=== PATIENT | female | born 1985 ===

== ENCOUNTER 2018-08-15 02:25 | Emergency (ER) | payer OTHER ==
[2018-08-15] MEDS ORDERED: ACETAMINOPHEN 500 MG TAB PO ONE (03:03)
[2018-08-15] MEDS ORDERED: NS 1,000 ML IV ONE ×2 (03:11)
[2018-08-15] MEDS ORDERED: KETOROLAC 15 MG/1 ML SDV IVP ONE ×2 (03:12→04:44)
--- NOTE | 2018-08-15 03:16 | EDPHY ---
H & P Stated Complaint: back pain,dyspnea,fever for 5 days Time Seen by Provider: 08/15/18 02:56 HPI/ROS: This patient reports onset of left flank pain 3 and half days prior to arrival increasing in intensity since that time to its current 10/10 achy and sharp in nature. She took 1 Advil prior to arrival but did have relief. She reports onset over the past several hours of associated fevers and chills as well as diaphoresis. She reports some dyspnea is well but feels this is related to anxiety from her symptoms. Her boyfriend drove her here by private vehicle for evaluation of the symptoms tonight. She notes no other exacerbating factors except that with a deep breath she has an increase in the pain in her left flank in addition. ROS: Constitutional: Fevers and chills HEENT: No URI symptoms. No nasal congestion. No sore throat. No ear pain Pulmonary: No cough. Otherwise as per HPI. Cardiovascular: No leg pain or swelling. No chest pain. No lightheadedness. GI: No abdominal pain. No nausea vomiting. Normal bowel movements. Normal appetite. : She has not noticed dysuria frequency urgency. No hematuria noted. Integumentary: No skin rashes. 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 She denies any midline neck or back pain. Neuro: No headache. No numbness tingling or focal weakness. No confusion. 10 point review of symptoms is performed and otherwise negative with exception of pertinent positives and negatives listed in HPI and ROS Source: Patient Exam Limitations: No limitations - Personal History LMP (Females 10-55): Irregular Current Tetanus Diphtheria and Acellular Pertussis (TDAP): Yes Tetanus Vaccine Date: unsure - Medical/Surgical History Hx Asthma: No Hx Chronic Respiratory Disease: No Hx Diabetes: No Hx Cardiac Disease: No Hx Renal Disease: No Hx Cirrhosis: No Hx Alcoholism: No Hx HIV/AIDS: No Hx Splenectomy or Spleen Trauma: No Other PMH: denies - Family History Significant Family History: No pertinent family hx - Social History Smoking Status: Former smoker Alcohol Use: Rarely Drug Use: None 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 - Physical Exam Exam: Morbidly obese female with vitals notable for fever 37.9, tachycardia to 128, normal blood pressure O2 sat of 93% room air General Appearance: Alert, no distress. Eyes: Pupils equal and round no pallor or injection. ENT, Mouth: Mucous membranes moist. Respiratory: There are no retractions, lungs are clear to auscultation. Cardiovascular: Regular rate and rhythm. Gastrointestinal: Abdomen is soft and nontender, no masses, bowel sounds normal. Back: Patient has no midline tenderness. She has left CVA tenderness. Neurological: GCS 15 with no focal deficits. Skin: Warm and dry, no rashes. Musculoskeletal: Neck is supple nontender. Extremities are symmetrical, full range of motion. Psychiatric: Mildly anxious. Mood and affect are otherwise normal DIFFERENTIAL DIAGNOSIS: After history and physical exam differential diagnosis include pyelonephritis, pneumonia, sepsis, doubt epidural abscess, doubt Reji Yariel Juan syndrome given lack of symptoms, viral syndrome. Constitutional: Initial Vital Signs Temperature (C) 37.9 C 08/15/18 02:33 Heart Rate 128 H 08/15/18 02:33 Respiratory Rate 20 08/15/18 02:33 Blood Pressure 131/78 H 08/15/18 02:33 O2 Sat (%) 93 08/15/18 02:33 O2 Delivery Mode Room Air Allergies/Adverse Reactions: No Known Allergies Allergy (Unverified 08/15/18 02:33) Home Medications: Medication Instructions Recorded Cephalexin [Keflex (*)] 500 mg PO TID #30 cap 08/15/18 Medical Decision Making ED Course/Re-evaluation: IV normal saline bolus, Toradol IV, Rocephin 2 g IV Labs to include CBC, basic metabolic panel, lactate and blood culture, urine culture, will also obtain a chest x-ray workup this patient's fever and flank pain. Patient is noted to have leukocytosis with left shift on CBC, basic metabolic panel reveals mild hyperglycemia in the 170s, otherwise normal and venous lactate is mildly elevated at 2.7. Patient remained hemodynamically stable. After 2 L normal saline bolus patient has venous lactate normalized. At 0355 I evaluated the patient's saline bolus was going very slowly despite repositioning. I ordered a 2nd IV to facilitate saline bolus After Toradol at her fever has resolved. Part way through the saline bolus her pulse has normalized to a rate of 98. I explained to the patient that she has findings consistent with severe sepsis and that we often admit patients for this problem. Patient declines admission preferring to proceed home after her ED treatment. She reports that her pain is resolved after Toradol. She reports that she is aware of her hyperglycemia due to a recent blood glucose that a friend performed for her that works at medical facility but she has not seen a physician yet. - Data Points Laboratory Results: POC urine dip is positive for leukocytes, microscopic hematuria sent for urine microscopic in urine culture which are pending Microbiology Results: MICROBIOLOGY 08/15/18 03:10 Urine,Catheterized Urine Culture - Preliminary Gram Neg Pedro Nonlactose Ferm. Four [place] Types 08/15/18 03:30 Blood Blood Culture - Preliminary 08/15/18 03:28 Blood Blood Culture - Preliminary Medications Given: Discontinued Medications Acetaminophen (Tylenol) 1,000 mg PO EDNOW ONE Stop: 08/15/18 03:04 Last Admin: 08/15/18 03:09 Dose: 1,000 mg Ceftriaxone Sodium 2 gm/ (Sodium Chloride) 100 mls @ 200 mls/hr IV EDNOW ONE PRN Reason: Protocol Stop: 08/15/18 03:40 Last Admin: 08/15/18 03:45 Dose: 100 mls Sodium Chloride (Ns) 1,000 mls @ 0 mls/hr IV ONCE ONE; Wide Open PRN Reason: Protocol Stop: 08/15/18 03:12 Last Admin: 08/15/18 03:43 Dose: 1,000 mls Sodium Chloride (Ns) 1,000 mls @ 0 mls/hr IV ONCE ONE; Wide Open PRN Reason: Protocol Stop: 08/15/18 03:12 Last Admin: 08/15/18 04:14 Dose: 1,000 mls Ketorolac Tromethamine (Toradol) 15 mg IVP EDNOW ONE Stop: 08/15/18 03:13 Last Admin: 08/15/18 03:44 Dose: 15 mg Ketorolac Tromethamine (Toradol) 15 mg IVP EDNOW ONE Stop: 08/15/18 04:45 Last Admin: 08/15/18 04:52 Dose: 15 mg Point of Care Test Results: CBC CBC Collection Date 08/15/18 CBC Collection Time 03:28 WBC 12.44 RBC 4.94 HGB 14.9 HCT 42.6 PLT 267 Neut # 10.64 Neut 85.6 LYMPH # 0.66 LYMPH 5.3 MCV 86.2 Chemistry 08/15/18 03:34 POC Sodium 141 mEq/L mEq/L (135-145) POC Potassium 3.4 mEq/L mEq/L (3.3-5.0) POC Chloride 107.0 mEq/L mEq/L (97-110) POC Total CO2 20 mEq/L L mEq/L (22-31) POC BUN 11 mg/dL mg/dL (7-23) POC Creatinine 0.6 mg/dL mg/dL (0.6-1.0) POC Glucose 174 mg/dL H mg/dL (70-100) POC Calcium 9.3 mg/dL mg/dL (8.5-10.4) Blood Gas/Lactic Acid-Venous 08/15/18 08/15/18 04:58 03:40 POC Lactic Acid Russel 1.5 mmol/L D mmol/L 2.7 mmol/L H mmol/L (0.7-2.1) (0.7-2.1) Urine Collection Date 08/15/18 Collection Time 02:50 HCG Results Negative Urine Dip Collection Date 08/15/18 Collection Time 02:50 Specific [place] (1.002-1.030) 1.030 PH (5.0-7.5) 5.5 Leukocytes (Negative) Trace Nitrites (Negative) Negative Protein (Negative) 1+ Glucose (Negative) Negative Ketones (Negative) Negative Urobilnogen (0.2-1.0 EU) 0.2 Bilirubin (Negative) Negative Blood (Negative) 1+ Departure - Departure Disposition: Home, Routine, Self-Care Clinical Impression: Pyelonephritis, Hyperglycemia Condition: Good Instructions: Urinary Tract Infection in Women (ED), Diabetic Hyperglycemia (ED ) Additional Instructions: Diagnoses: 1. Pyelonephritis 2. Hyperglycemia You declined admission to the hospital tonight for urinary tract infection and mildly elevated blood sugar. Plan: Drink plenty of fluids Keflex antibiotic Ibuprofen-600 mg per 6 hr if needed for fevers or chills. Tylenol in addition if needed. Be sure to have close outpatient follow-up for further workup of your high blood sugar. You likely have early diabetes. Return emergency department if he develops any significant worsening of symptoms despite the treatment plan. Referrals: Patient,NotPresent [Primary Care Provider] - As per Instructions Phuc Pruett MD [Medical Doctor] - As per Instructions Stand Alone Forms: Work Excuse Prescriptions: Cephalexin [Keflex (*)] 500 mg PO TID #30 cap
[2018-08-15 05:32] VITALS: BP 116/76
== END 2018-08-15 05:27 | disposition home or self-care (01) ==
LOC: CED 02:25
DX: N10 Acute pyelonephritis (principal); E11.65 Type 2 diabetes mellitus with hyperglycemia
CPT/HCPCS: 71046-PO; 80048-ER; 81025-ER; 83605-ER; 85025-QW-ER; 96361-ER; 96365-ER; 96375-ER; 96376-ER; 99284-ER; J0696; J1885